=== PATIENT | female | born 1965 | race Caucasian/White ===

== ENCOUNTER 2020-06-04 12:38 | Emergency (ER) | payer OTHER ==
[2020-06-04] MEDS ORDERED: Ibuprofen 600 MG Tab PO ONE (14:13)
--- NOTE | 2020-06-04 14:57 | CR ---
Pain knee 3 views the left knee. Findings: Normal alignment. No fractures. No effusion. No acute osseous abnormality. Dictated by Chantell Ugalde MD @ Jun 04 2020 2:54PM Signed by Dr. Chantell Ugalde @ Jun 04 2020 2:55PM
--- NOTE | 2020-06-04 15:21 | EDM.PDOC ---
ED HPI GENERAL MEDICAL PROBLEM - General Chief Complaint: Lower Extremity Injury/Pain Stated Complaint: PAIN BEHIND LT KNEE Time Seen by Provider: 06/04/20 12:40 Source of Information: Reports: Patient History Limitations: Reports: No Limitations - History of Present Illness INITIAL COMMENTS - FREE TEXT/NARRATIVE: 55F presents for pain to L knee x2 days. Patient notes h/o overuse injury while swimming a couple of weeks ago. Denies falling or acute injury. Pain is primarily in L popliteal fossa. Mild swelling and "tightness" sensation. Worse with movement and weight bearing. Denies CP, SOB, warmth, redness Left Posterior Knee Pain Score (Numeric/FACES): 1 - Related Data Allergies Allergy/AdvReac Type Severity Reaction Status Date / Time No Known Drug Allergies Allergy Other Verified 06/04/20 13:33 Home Meds: Home Meds Metoprolol Succinate [Kapspargo Sprinkle] 50 mg PO BID 06/04/20 [History] Rivaroxaban [Xarelto] 15 mg PO DAILY 21 Days #42 tab 06/04/20 [Rx] Spironolactone [Aldactone] 15 mg PO QAM 06/04/20 [History] lisinopriL [Lisinopril] 5 mg PO QAM 06/04/20 [History] lisinopriL [Lisinopril] 10 mg PO QPM 06/04/20 [History] Past Medical History Cardiovascular History: Reports: Heart Failure, Hypertension [employer] History: Reports: Musculoskeletal History: Reports: Osteoarthritis Psychiatric History: Reports: Anxiety Endocrine/Metabolic History: Reports: Other (See Below) Other Endocrine/Metabolic History: lupus Dermatologic History: Reports: Other (See Below) Other Dermatologic History: "sjorgens" disease Social & Family History - Family History Family Medical History: Noncontributory - Tobacco Use Smoking Status *Q: Never Smoker - Caffeine Use Caffeine Use: Reports: None - Recreational Drug Use Recreational Drug Use: No Review of Systems - Review of Systems Review Of Systems: Comprehensive ROS is negative, except as noted in HPI. ED EXAM, GENERAL - Physical Exam Exam: See Below Exam Limited By: Altered Mental Status General Appearance: Alert, WD/WN, No Apparent Distress Head: Atraumatic, Normocephalic Respiratory/Chest: No Respiratory Distress, Lungs Clear, Normal Breath Sounds, No Accessory Muscle Use Cardiovascular: Normal Peripheral Pulses, Regular Rate, Rhythm, No Edema Extremities: Normal Inspection, Other (TTP of L knee b/l joint lines and popliteal fossa; LE are symmetric without erythema/warmth. No calf TTP, negative vince) Psychiatric: Normal Affect, Normal Mood Skin Exam: Warm, Dry Course - Vital Signs Last Recorded V/S: Last Vital Signs Temp 99.3 F 06/04/20 13:38 Pulse 75 06/04/20 13:38 Resp 18 06/04/20 13:38 BP 131/75 06/04/20 13:38 Pulse Ox 97 06/04/20 13:38 - Orders/Labs/Meds Orders: Active Orders 24 hr Category Date Time Status Venous Doppler Lwr Ext Lt [US] Stat Exams 06/04/20 15:40 Taken Labs: Laboratory Tests 06/04/20 Range/Units 15:05 INR 1.08 APTT 25.7 (18.6-31.3) SEC D-Dimer, Quantitative 8.45 H (0.0-0.50) mg/L FEU Meds: Medications Discontinued Medications Generic Name Dose Route Start Last Admin Trade Name Brenda PRN Reason Stop Dose Admin Ibuprofen 600 mg 06/04/20 14:13 06/04/20 14:26 Motrin PO 06/04/20 14:14 600 mg ONETIME ONE Administration - Re-Assessments/Exams Free Text/Narrative Re-Assessment/Exam: Will get XR to look for signs of arthritis changes, effusion. Will get D-dimer for DVT screen. 06/04/20 15:52 D dimer is markedly elevated; will get US to r/o DVT. XR is negative 06/04/20 16:24 Presumptive positive for DVT of LLE; will wait for radiology read and dispo accordingly Departure - Departure Time of Disposition: 16:51 Disposition: Home, Self-Care 01 Condition: Good Clinical Impression: DVT (deep venous thrombosis) Qualifiers: DVT location: lower extremity Affected thrombotic vein of extremity: popliteal Chronicity: acute Laterality: left Qualified Code(s): I82.432 - Acute embolism and thrombosis of left popliteal vein - Discharge Information Prescriptions: Rivaroxaban [Xarelto] 15 mg PO DAILY 21 Days #42 tab Instructions: Deep Vein Thrombosis Referrals: PMD, PMD [Other] Forms: ED Department Discharge Additional Instructions: The following information is given to patients seen in the emergency department who are being discharged to home. This information is to outline your options for follow-up care. We provide all patients seen in our emergency department with a follow-up referral. The need for follow-up, as well as the timing and circumstances, are variable depending upon the specifics of your emergency department visit. If you don't have a primary care physician on staff, we will provide you with a referral. We always advise you to contact your personal physician following an emergency department visit to inform them of the circumstance of the visit and for follow-up with them and/or the need for any referrals to a consulting specialist. The emergency department will also refer you to a specialist when appropriate. This referral assures that you have the opportunity for follow-up care with a specialist. All of these measure are taken in an effort to provide you with optimal care, which includes your follow-up. Under all circumstances we always encourage you to contact your private physician who remains a resource for coordinating your care. When calling for follow-up care, please make the office aware that this follow-up is from your recent emergency room visit. If for any reason you are refused follow-up, please contact the [facility] Emergency Department at and asked to speak to the emergency department charge nurse. Sepsis Event Note (ED) - Evaluation Sepsis Screening Result: No Definite Risk - Focused Exam Vital Signs: Vital Signs Temp Pulse Resp BP Pulse Ox 06/04/20 13:38 99.3 F 75 18 131/75 97 - My Orders Last 24 Hours: My Active Orders 06/04/20 15:40 Venous Doppler Lwr Ext Lt [US] Stat - Assessment/Plan Last 24 Hours: My Active Orders 06/04/20 15:40 Venous Doppler Lwr Ext Lt [US] Stat
--- NOTE | 2020-06-04 16:52 | US ---
INDICATION: Left leg pain with elevated D-dimer TECHNIQUE: Ultrasound venous duplex left lower extremity. Chavira-scale, color Doppler, and spectral Doppler imaging were performed with compression and augmentation. COMPARISON: None FINDINGS: Deep veins: Intraluminal thrombus is present within the distal femoral, popliteal, and visualized calf veins. The left common femoral, proximal femoral veins are patent and compressible. Superficial veins: The visualized greater saphenous and superficial veins of the leg and calf are unremarkable. Soft tissue: No masses or cysts are identified. No adenopathy is seen. IMPRESSION: 1. Intraluminal thrombus is present within the distal femoral, popliteal, and visualized calf veins. The findings were discussed with Dr. Gonzales at 4:50 PM. Dictated by Hector Lyles MD @ 06/04/2020 4:44:14 PM Dictated by: Hector Lyles MD @ 06/04/2020 16:51:08 (Electronically Signed)
== END 2020-06-04 17:25 | disposition home or self-care (01) ==
LOC: MW.ED 12:38
DX: I82.432 Acute embolism and thrombosis of left popliteal vein (principal); I11.0 Hypertensive heart disease with heart failure; I50.9 Heart failure, unspecified; Z79.01 Long term (current) use of anticoagulants; Z79.899 Other long term (current) drug therapy
CPT/HCPCS: 36415; 73562; 85379; 85610; 85730; 93971; 99284; A9270; 99283